=== PATIENT | female | born 2000 | race Asian ===

== ENCOUNTER → 2019-05-29 16:59 | Outpatient (CLI) | payer OTHER, SELFPAY ==
--- NOTE | 2019-05-29 | DI.MRI.S_ITS ---
PROCEDURE: MR BRAIN (PITUITARY) WWO CON INDICATIONS: ELEVATED PROLACTIN TECHNIQUE: Noncontrast sagittal and axial FLAIR, axial gradient echo, axial diffusion and ADC through the brain. Thin-slice sagittal and coronal T1 spin echo, coronal T2 fast spin echo through the pituitary. After the administration contrast, optional dynamic coronal T1 spin echo, thin-slice coronal and sagittal T1 spin echo images through the pituitary fossa; axial T1 spin echo with fat saturation through the brain. COMPARISON: None. FINDINGS: Image quality: Excellent. Pituitary Gland: The pituitary gland is normal size and contour. There is a small, approximately 2 x 3 mm in diameter focus of slightly delayed postcontrast enhancement in the anterior left margin of the pituitary gland suspicious for pituitary microadenoma. Pituitary infundibulum is midline and has normal contours. Pituitary infundibulum enhances normally. The optic chiasm is normal. No suprasellar mass is identified. The cavernous sinus enhances normally. CSF Spaces: Ventricles are normal in size and shape. Basal cisterns are patent. No extra-axial fluid collections. Brain: No intracranial bleeds or mass effects. No abnormal intracranial enhancement. Castillo-white matter interface is intact. Diffusion weighted images demonstrate no acute ischemic insults. Brainstem is normal. Normal intravascular flow voids are present. Skull and face: Calvarial marrow is normal in signal. Orbits appear normal. Sinuses: Sinuses and mastoids are clear. IMPRESSION: Small, approximately 2-3 mm focus of slightly delayed postcontrast enhancement in the anterior left pituitary gland suspicious for pituitary microadenoma. Dictated by: Jelena Loya MD, PhD on 05/30/2019 at 9:59 Approved by: Jelena Loya MD, PhD on 05/30/2019 at 10:11
== END ==
PROVIDERS: Visit Provider Family Medicine
DX: E22.1 Hyperprolactinemia (principal)
CPT/HCPCS: 70553; A9579

== ENCOUNTER 2019-08-13 10:42 | Emergency (ER) | payer OTHER, SELFPAY ==
[2019-08-13 10:58] VITALS: BP 114/74; PULSE 84; RESP 16; TEMP 36.6; O2SAT 98; BMI 17.2
--- NOTE | 2019-08-13 11:06 | DI.RAD.S_ITS ---
PROCEDURE: XR ABDOMEN 1V INDICATIONS: constipation TECHNIQUE: One view of the abdomen acquired. COMPARISON: None. FINDINGS: Surgical changes and devices: None. Bowel: Bowel gas pattern is normal. Moderate stool without obstruction. Soft tissues: No suspicious abdominal calcifications. Visualized solid organ contours appear normal in size. Bones: No suspicious bony lesions. IMPRESSION: Moderate stool without obstruction. Dictated by: Kristie Ricci M.D. on 08/13/2019 at 11:26 Approved by: Kristie Ricci M.D. on 08/13/2019 at 11:28
[2019-08-13 12:10] LABS: RBC Urine 5-10/HPF (0-5/HPF); WBC Urine 10-30/HPF (0-5/HPF)
[2019-08-13 12:11] LABS: Bacteria Urine Many (>30); Culture Indicated Urine Specimen Cultured; Squamous Epithelial Cell Urine 0-1 /HPF (0-5/HPF)
[2019-08-13 13:13] VITALS: BP 116/69; PULSE 89; RESP 16
--- NOTE | 2019-08-13 13:53 | ED_ITS ---
HPI - Abdominal Pain <KOMAL Gray - Last Filed: 08/13/19 14:15> General Chief Complaint: Abdominal Pain Stated Complaint: BACK AND ABD PAIN Time Seen by Provider: 08/13/19 12:49 Source: patient Mode of arrival: Ambulatory Limitations: no limitations History of Present Illness HPI narrative: The patient is a 19-year-old female current smoker presents with a chief complaint of lower back pain and abdominal pain. She states back pain started yesterday. No bowel movements for a few days. Denies any fevers nausea vomiting or diarrhea. She complains of dysuria urgency and frequency. She has a history of urinary tract infections, no recent antibiotics. She states she is eating and drinking well. States that abdominal pain is suprapubic. Related Data Previous Rx's Medication Instructions Recorded sulfamethoxazole-trimethoprim 1 tab PO BID #10 tab 08/13/19 [Bactrim DS] Review of Systems <KOMAL Gray - Last Filed: 08/13/19 14:15> Review of Systems Narrative: GENERAL: Denies chills, fatigue, malaise, fever, sweats. HEENT: Denies sinus pain, ear pain, sore throat, difficulty swallowing, dizziness. RESPIRATORY: Denies dyspnea, cough, wheezing, hemoptysis, sputum. CARDIOVASCULAR: Denies chest pain, palpitations, orthopnea, edema, GASTROINTESTINAL: See HPI : See HPI MUSCULOSKELETAL: denies weakness, joint pain, or bony pain SKIN: Denies rash, skin lesions, or other NEUROLOGIC: Denies weakness, headache, numbness, change in speech, confusion, seizures, incoordination. PSYCHIATRIC: No concerning psychosocial issues. 12 point review of systems is negative except for those stated above Patient History <KOMAL Gray - Last Filed: 08/13/19 14:15> Social History Social History Smoking Status: Current every day smoker tobacco type: cigarettes alcohol intake frequency: 3 or more drinks per day Alcohol type: hard liquor Substance Use Type: does not use Exam <KOMAL Gray - Last Filed: 08/13/19 14:15> Narrative Exam Narrative: GENERAL: This is a well-nourished, well-developed patient, in no acute distress HEAD: Atraumatic. Normocephalic. No temporal or scalp tenderness. EYES: Pupils equal round and reactive. Extraocular motions intact. No scleral icterus. No injection or drainage. ENT: Nose without bleeding, purulent drainage or septal hematoma. Throat without erythema, tonsillar hypertrophy or exudate. Uvula midline. Airway patent. NECK: Trachea midline. No JVD or lymphadenopathy. Supple, nontender, no meningeal signs. CARDIOVASCULAR: Regular rate and rhythm without murmurs, gallops, or rubs. RESPIRATORY: Clear to auscultation. Breath sounds equal bilaterally. No wheezes, rales, or rhonchi. No cough. No increased respiratory effort. No accessory muscle use. GASTROINTESTINAL: Abdomen soft, nondistended. No hepato-splenomegaly, or palpable masses. No guarding. Active bowel sounds all 4 quadrants. Suprapubic tenderness to palpation, no guarding EXTREMITIES: No clubbing, cyanosis, or edema. No joint tenderness, effusion, or edema noted. BACK: Nontender without deformity or crepitance. No flank tenderness. NEURO: AOx3. SKIN: No rash or erythema. Initial Vital Signs Initial Vital Signs: Vital Signs Temperature 97.8 F 08/13/19 10:58 Pulse Rate 84 08/13/19 10:58 Respiratory Rate 16 08/13/19 10:58 Blood Pressure 114/74 08/13/19 10:58 Pulse Oximetry 98 08/13/19 10:58 <Angelito Geiger DO - Last Filed: 08/13/19 14:57> Initial Vital Signs Initial Vital Signs: Vital Signs Temperature 97.8 F 08/13/19 10:58 Pulse Rate 84 08/13/19 10:58 Respiratory Rate 16 08/13/19 10:58 Blood Pressure 114/74 08/13/19 10:58 Pulse Oximetry 98 08/13/19 10:58 Course <KOMAL Gray - Last Filed: 08/13/19 14:15> Orders Ordered: ED Orders 08/13/19 11:05 Urine Culture Stat Urine Microscopic Stat 08/13/19 11:06 XR abdomen 1V Stat Vital Signs Vital signs: Vital Signs - 8 hr 08/13/19 10:58 08/13/19 13:13 Temperature 97.8 F Pulse Rate 84 89 Respiratory Rate 16 16 Blood Pressure 114/74 116/69 Pulse Oximetry 98 <Angelito Geiger DO - Last Filed: 08/13/19 14:57> Orders Ordered: ED Orders 08/13/19 11:05 Urine Culture Stat Urine Microscopic Stat 08/13/19 11:06 XR abdomen 1V Stat Vital Signs Vital signs: Vital Signs - 8 hr 08/13/19 10:58 08/13/19 13:13 Temperature 97.8 F Pulse Rate 84 89 Respiratory Rate 16 16 Blood Pressure 114/74 116/69 Pulse Oximetry 98 MDM - Abdominal Pain <DOYLE Gray-BC - Last Filed: 08/13/19 14:15> Lab Data Labs: Lab Results 08/13/19 Range/Units 11:05 Urine RBC 5-10/hpf H (0-5/HPF) Urine WBC 10-30/hpf H (0-5/HPF) Ur Squamous Epith Cells 0-1 /hpf (0-5/HPF) Urine Bacteria Many (>30) H (None) Ur Culture Indicated? Specimen cultured Point of care testing: Point of Care Testing Test Results Negative Urine Dip Bedside Urine Glucose Negative Bedside Urine Bilirubin - Negative Bedside Urine Ketone - Negative Urine Specific [place] 1.015 Bedside Urine Occult Blood ++ Bedside Urine pH 6.0 Bedside Urine Protein +/- 15 Bedside Urine Urobilinogen - Negative Bedside Urine Nitrite - Negative Bedside Urine Leukocytes ++ 125 Esterase Imaging Data Abdominal x-ray: Radiologist's impression: Chart Viewer Diagnostics DATE TYPE STATUS AUTHOR Hx 08/13/19 11:06 Kristie Ricci 05/29/19 00:00 Jelena Loya Jade N 19, F0 [address] [facility], [facility] ED 160.02cm 43.998kg BMI: 17.2kg/m? Abdominal Pain Search Chart No Data to Display No Data to Display ONSET Today 13:13 Elyssa Martins N 19 F [address] [address] XRay Report Signed Patient: Jose Martinsde [facility]#: [id number] : 2000Acct:[id number] Age/Sex: 19 / FDate of Service: 08/13/19 Loc: ED Accession Number: [id number] Procedure: XR abdomen 1V Ordering Provider: Angelito Geiger D.O. PROCEDURE: XR ABDOMEN 1V INDICATIONS: constipation TECHNIQUE: One view of the abdomen acquired. COMPARISON: None. FINDINGS: Surgical changes and devices: None. Bowel: Bowel gas pattern is normal. Moderate stool without obstruction. Soft tissues: No suspicious abdominal calcifications. Visualized solid organ contours appear normal in size. Bones: No suspicious bony lesions. IMPRESSION: Moderate stool without obstruction. Dictated by: Kristie Ricci M.D. on 08/13/2019 at 11:26 Approved by: Kristie Ricci M.D. on 08/13/2019 at 11:28 [facility] Narrative Medical decision making narrative: The patient is a 19-year-old female who presents with multiple complaints including dysuria, lower back pain constipation. X-ray indicates constipation, but helps rule out obstruction. She does not have an acute abdomen on exam. Her urinalysis is concerning for a UTI, bacterial leukocyte esterase and blood. I placed her on 5 days of Bactrim. Urine cultures pending at this time. I discussed at length hydration, high- fiber diet, suggested Colace MiraLax etc. Discussed at length return precau tions including inability keep down fluids, abdominal with fever etc. Encourage PCP follow-up. Patient has no questions or concerns upon discharge and states understanding of return precautions as well as follow-up care. <Angelito Geiger, - Last Filed: 08/13/19 14:57> Lab Data Labs: Lab Results 08/13/19 Range/Units 11:05 Urine RBC 5-10/hpf H (0-5/HPF) Urine WBC 10-30/hpf H (0-5/HPF) Ur Squamous Epith Cells 0-1 /hpf (0-5/HPF) Urine Bacteria Many (>30) H (None) Ur Culture Indicated? Specimen cultured Point of care testing: Point of Care Testing Test Results Negative Urine Dip Bedside Urine Glucose Negative Bedside Urine Bilirubin - Negative Bedside Urine Ketone - Negative Urine Specific [place] 1.015 Bedside Urine Occult Blood ++ Bedside Urine pH 6.0 Bedside Urine Protein +/- 15 Bedside Urine Urobilinogen - Negative Bedside Urine Nitrite - Negative Bedside Urine Leukocytes ++ 125 Esterase Discharge Plan Departure Patient Disposition: Home Clinical Impression: UTI (urinary tract infection) Qualifiers: Urinary tract infection type: site unspecified Hematuria presence: with hematuria Qualified Code(s): N39.0 - Urinary tract infection, site not specified Constipation Qualifiers: Constipation type: unspecified constipation type Qualified Code(s): K59.00 - Constipation, unspecified Discharge Date/Time: 08/13/19 13:14 Instructions: Constipation (Alternative Therapy), DI for Urinary Tract Infection (UTI), DI for Constipation Activity Restrictions/Additional Instructions: Today we found a urinary tract infection and constipation Be sure to stay hydrated. I suggest high-fiber diet. you can start something such as MiraLax to help prevent constipation. You can always use eovt-stc-kctqoli docusate, which is a stool softener or senna which is a laxative. Monitor for abdominal pain with fever inability keep down fluids or any acute concerns and come back to emergency department for any acute concerns. Please follow up with primary care provider in a few days. Please come back to the emergency department for any acute concerns. Prescriptions: New sulfamethoxazole-trimethoprim [Bactrim DS] 800-160 mg tablet 1 tab PO BID Qty: 10 RF: 0 Referrals: Gloria Santos MD [Primary Care Provider] - Stand Alone Forms: Work Release Note <Angelito Geiger DO - Last Filed: 08/13/19 14:57> Sign Out Provider Sign Out Attestation: I was available for consultation during this patient's emergency department visit. This chart is signed by myself for administrative purposes only. I did not have direct contact with this patient during this visit. They were seen independently by the APC.
== END 2019-08-13 13:14 | disposition home or self-care (01) ==
PROVIDERS: Emergency Provider Nurse Practitioner Family; PCP Family Medicine
DX: N39.0 Urinary tract infection, site not specified (principal); K59.00 Constipation, unspecified
CPT/HCPCS: 74018; 81003; 81015; 81025; 87077; 87086; 87186; 99283; 99284

== ENCOUNTER 2019-08-16 11:21 | Emergency (ER) | payer OTHER, SELFPAY ==
--- NOTE | 2019-08-16 | DI.RAD.S_ITS ---
PROCEDURE: XR CHEST 1V INDICATIONS: VOMITING, DIARRHEA/CONSTIPATION TECHNIQUE: One view of the chest was acquired. COMPARISON: None. FINDINGS: Surgical changes and devices: Metallic foreign bodies project over the bilateral lung bases, most consistent with skin piercings. Lungs and pleura: Lungs are clear. No pleural effusions or pneumothorax. Mediastinum: Mediastinal contours appear normal. Heart size is normal. Bones and chest wall: No suspicious bony lesions. Overlying soft tissues appear unremarkable. IMPRESSION: No radiographic evidence of acute cardiopulmonary disease. Dictated by: Urban Nazario M.D. on 08/16/2019 at 16:20 Approved by: Urban Nazario M.D. on 08/16/2019 at 16:23
[2019-08-16 11:55] VITALS: BP 122/81; PULSE 104; RESP 16; TEMP 37.1; O2SAT 96
--- NOTE | 2019-08-16 12:59 | ED.NAVMDI ---
HPI - Nausea/Vomiting/Diarrhea <Shanda De Souza PA-C - Last Filed: 08/16/19 20:29> General Chief complaint: Nausea/Vomiting/Diarrhea Stated complaint: migraine/bowel pain/diarrhea x3 days Time Seen by Provider: 08/16/19 12:50 Source: patient and family Mode of arrival: Ambulatory Limitations: no limitations History of Present Illness HPI Narrative: This 19-year-old female comes to ED secondary to unrelenting migraine headache that started 2 nights ago. She states that she took her Excedrin, but was not at home and could not take her Maxalt which usually works for her. She states that headache is typically unilateral but this time is all over her head. Other symptoms are typical with light sensitivity and nausea. She states she was vomiting all night last night, some dry heaves today and has not had food or fluids. She did try Zofran and promethazine for nausea that she was given by her PCP but does not think they helped. She states that she also developed diarrhea 2 days ago, cannot say how often but frequent, at least 4 times today, with loose but not bloody or watery stool. She states that she thinks this is due to laxative use because she started using prune juice and laxative to help with some constipation prior. She denies abdominal pain, possibility of or urinary symptoms (she was seen here a few days ago and started on Bactrim for UTI, symptoms have resolved). She denies any fever, upper respiratory symptoms or cough or other new complaints on systems review. Related Data Home Medications Medication Instructions Recorded Confirmed promethazine 25 mg PO PRN PRN 08/16/19 08/16/19 propranolol 10 mg PO QAM 08/16/19 08/16/19 rizatriptan [Maxalt-DATA PROCESSING SPECIALIST] 5 mg PO DIRECTED 08/16/19 08/16/19 Previous Rx's Medication Instructions Recorded sulfamethoxazole-trimethoprim 1 tab PO BID #10 tab 08/13/19 [Bactrim DS] Allergies Allergy/AdvReac Type Severity Reaction Status Date / Time No Known Drug Allergies Allergy Verified 08/16/19 12:01 Review of Systems <Shanda De Souza PA-C - Last Filed: 08/16/19 20:29> Review of Systems ROS Unobtainable: All systems reviewed & are unremarkable except as noted in HPI and below Patient History <Shanda De Souza PA-C - Last Filed: 08/16/19 20:29> Medical History (Updated 08/16/19 @ 16:53 by Shanda De Souza PA-C) Headache, migraine (Acute) Surgical History (Updated 08/16/19 @ 13:28 by Shanda De Souza PA-C) No history of previous surgery (Acute) Social History (Updated 08/16/19 @ 13:29 by Shanda De Souza PA-C) Smoking Status: Current every day smoker Smokeless tobacco user: other Social History (Updated 08/16/19 @ 13:29 by Shanda De Souza PA-C) Smoking Status: Current every day smoker Smokeless tobacco user: other tobacco type: vaping alcohol intake frequency: 3 or more drinks per day Alcohol type: hard liquor Substance Use Type: does not use Exam <Shanda De Souza PA-C - Last Filed: 08/16/19 20:29> Narrative Exam Narrative: GENERAL APPEARANCE: Patient lying in darkened room, in NAD HEENT: PERRL, EOMI, normal oropharynx NECK: Supple LUNGS: Clear to auscultation bilaterally. HEART: Rate and rhythm regular without murmur, normal S1 and S2, no S3 or S4. ABDOMEN: Soft, NT, ND, + BS x 4 quadrants NEUROLOGIC: Alert and oriented, normal speech and coordination. MUSCULOSKELETAL: Full Csp AROM Initial Vital Signs Initial Vital Signs: Vital Signs Temperature 98.8 F 08/16/19 11:55 Pulse Rate 104 H 08/16/19 11:55 Respiratory Rate 16 08/16/19 11:55 Blood Pressure 122/81 08/16/19 11:55 Pulse Oximetry 96 08/16/19 11:55 <Abril Veliz MD - Last Filed: 08/19/19 07:00> Initial Vital Signs Initial Vital Signs: Vital Signs Temperature 98.8 F 08/16/19 11:55 Pulse Rate 104 H 08/16/19 11:55 Respiratory Rate 16 08/16/19 11:55 Blood Pressure 122/81 08/16/19 11:55 Pulse Oximetry 96 08/16/19 11:55 Course <Shanda De Souza PA-C - Last Filed: 08/16/19 20:29> Course Additional Information: Patient initially was feeling better and sleeping after initial medications, then started to have some recurrent vomiting. She reported improvement in her headache, was given Zofran IV and fell back asleep without any recurrent vomiting during her stay. She did not have any episodes of diarrhea while in the department. She was able to tolerate saltines and josee mitch. She reported feeling improved and requesting to go home prior to discharge, states she has suppositories and other medications for nausea at home if needed. I did later review patient's urine culture results which showed E coli resistant to Bactrim. She did report that urinary symptoms had completely resolved. Message left requesting that she call us back so we can ascertain whether a different antibiotic needed. Reviewed plan with nursing to changed to Macrobid if needed. Orders Ordered: Discontinued Medications Diphenhydramine HCl (Benadryl) 25 mg IV NOW ONE Stop: 08/16/19 13:24 Last Admin: 08/16/19 13:57 Dose: 25 mg Documented by: [email or web address] Sodium Chloride (Normal Saline 0.9%) 1,000 mls @ 1,000 mls/hr IV BOLUS ONE Stop: 08/16/19 14:22 Last Infusion: 08/16/19 15:00 Dose: 0 mls/hr Documented by: Admin: 08/16/19 13:52 Dose: 1,000 mls/hr Documented by: [email or web address] Sodium Chloride (Normal Saline 0.9%) 1,000 mls @ 1,000 mls/hr IV BOLUS ONE Stop: 08/16/19 15:55 Last Infusion: 08/16/19 16:30 Dose: 0 mls/hr Documented by: Admin: 08/16/19 15:03 Dose: 1,000 mls/hr Documented by: SUNITHA Ketorolac Tromethamine (Toradol) 30 mg IV NOW ONE Stop: 08/16/19 13:24 Last Admin: 08/16/19 13:55 Dose: 30 mg Documented by: [email or web address] Metoclopramide HCl (Reglan) 10 mg IV NOW ONE Stop: 08/16/19 13:24 Last Admin: 08/16/19 13:52 Dose: 10 mg Documented by: [email or web address] Ondansetron HCl (Zofran) 4 mg IV NOW ONE Stop: 08/16/19 14:57 Last Admin: 08/16/19 15:02 Dose: 4 mg Documented by: SUNITHA Vital Signs Vital signs: Vital Signs - 8 hr 08/16/19 15:41 08/16/19 17:00 Pulse Rate 99 H 84 Respiratory Rate 16 16 Blood Pressure [Right Arm] 113/63 115/73 Pulse Oximetry 98 98 <Abril Veliz MD - Last Filed: 08/19/19 07:00> Orders Ordered: Discontinued Medications Diphenhydramine HCl (Benadryl) 25 mg IV NOW ONE Stop: 08/16/19 13:24 Last Admin: 08/16/19 13:57 Dose: 25 mg Documented by: [email or web address] Sodium Chloride (Normal Saline 0.9%) 1,000 mls @ 1,000 mls/hr IV BOLUS ONE Stop: 08/16/19 14:22 Last Infusion: 08/16/19 15:00 Dose: 0 mls/hr Documented by: Admin: 08/16/19 13:52 Dose: 1,000 mls/hr Documented by: [email or web address] Sodium Chloride (Normal Saline 0.9%) 1,000 mls @ 1,000 mls/hr IV BOLUS ONE Stop: 08/16/19 15:55 Last Infusion: 08/16/19 16:30 Dose: 0 mls/hr Documented by: Admin: 08/16/19 15:03 Dose: 1,000 mls/hr Documented by: SUNITHA Ketorolac Tromethamine (Toradol) 30 mg IV NOW ONE Stop: 08/16/19 13:24 Last Admin: 08/16/19 13:55 Dose: 30 mg Documented by: [email or web address] Metoclopramide HCl (Reglan) 10 mg IV NOW ONE Stop: 08/16/19 13:24 Last Admin: 08/16/19 13:52 Dose: 10 mg Documented by: [email or web address] Ondansetron HCl (Zofran) 4 mg IV NOW ONE Stop: 08/16/19 14:57 Last Admin: 08/16/19 15:02 Dose: 4 mg Documented by: SUNITHA Vital Signs Vital signs: Vital Signs - 8 hr 08/16/19 15:41 08/16/19 17:00 Pulse Rate 99 H 84 Respiratory Rate 16 16 Blood Pressure [Right Arm] 113/63 115/73 Pulse Oximetry 98 98 Discharge Plan Departure Patient Disposition: Home Clinical Impression: Vomiting and diarrhea, Acute dehydration Headache, migraine Qualifiers: Migraine type: unspecified Status migrainosus presence: without status migrainosus Intractability: not intractable Qualified Code(s): G43.909 - Migraine, unspecified, not intractable, without status migrainosus Discharge Date/Time: 08/16/19 17:17 Instructions: DI for Migraine, DI for Dehydration -- Adult, DI for Vomiting -- Adult Activity Restrictions/Additional Instructions: Since you are feeling better, you can rest at home tonight in a dark quiet room, avoid any screen time. Drink plenty of clear fluids, and you can eat small amounts of bland food every couple of hours, try white bread or toast, white rice, bananas, applesauce 1st, and you can slowly advance her diet as you are feeling better. You can take your antinausea medicine as needed. As we talked about, you should return if you have any acutely worsening symptoms, unable to keep down fluids again, etc or new symptoms such as fever. Otherwise, please see your PCP if you are feeling back to normal in the next few days Prescriptions: No Action propranolol 10 mg tablet 10 mg PO QAM RF: 0 rizatriptan [Maxalt-DATA PROCESSING SPECIALIST] 5 mg tablet,disintegrating 5 mg PO DIRECTED RF: 0 promethazine 25 mg tablet 25 mg PO PRN PRN (Reason: Nausea) RF: 0 sulfamethoxazole-trimethoprim [Bactrim DS] 800-160 mg tablet 1 tab PO BID Qty: 10 RF: 0 Referrals: Gloria Santos MD [Primary Care Provider] - Stand Alone Forms: Work Release Note
[2019-08-16] MEDS: SODIUM CHLORIDE 0.9% 1,000 ML 1000 ML IV ×2 (13:52→15:03)
[2019-08-16] MEDS: METOCLOPRAMIDE 10 MG/2 ML INJ IV (13:52)
[2019-08-16] MEDS: KETOROLAC 60 MG/2 ML VIAL 30 MG IV (13:55)
[2019-08-16] MEDS: diphenhydrAMINE 50 MG/ML VIAL 25 MG IV (13:57)
--- NOTE | 2019-08-16 14:56 | DI.RAD.S_ITS ---
PROCEDURE: XR ABDOMEN 1V INDICATIONS: vomiting, diarrhea/constipation TECHNIQUE: One view of the abdomen acquired. COMPARISON: [facility], CR, XR ABDOMEN 1V, 08/13/2019, 11:08. FINDINGS: Surgical changes and devices: Metallic foreign bodies project over the bilateral lung bases, most consistent with skin piercings. Bowel: Bowel gas pattern is nonobstructive, with no air-fluid levels identified and no dilated loops of bowel seen. Soft tissues: No suspicious abdominal calcifications. Visualized solid organ contours appear normal in size. Bones: No suspicious bony lesions. IMPRESSION: Nonobstructive bowel gas pattern. Consider CT for further evaluation if there is continued clinical concern. Dictated by: Urban Nazario M.D. on 08/16/2019 at 16:23 Approved by: Urban Nazario M.D. on 08/16/2019 at 16:27
[2019-08-16] MEDS: ONDANSETRON 4 MG/2 ML INJ IV (15:02)
[2019-08-16 15:41] VITALS: BP 113/63; PULSE 99; RESP 16; O2SAT 98
[2019-08-16 17:00] VITALS: BP 115/73; PULSE 84; RESP 16; O2SAT 98
== END 2019-08-16 17:17 | disposition home or self-care (01) ==
PROVIDERS: Emergency Provider Internal Medicine; PCP Family Medicine
DX: G43.909 Migraine, unspecified, not intractable, without status migrainosus (principal); E86.0 Dehydration; R11.10 Vomiting, unspecified; R19.7 Diarrhea, unspecified
CPT/HCPCS: 36415; 71045; 74018; 96361; 96374; 96375; 99283; 99284; J1200; J1885; J2405; J2765

== ENCOUNTER 2020-01-04 19:35 | Emergency (ER) | payer OTHER, SELFPAY ==
[2020-01-04 19:56] VITALS: BP 132/68; PULSE 115; RESP 24; TEMP 36.9; O2SAT 98
[2020-01-04] MEDS: ONDANSETRON 4 MG/2 ML INJ IV (20:46)
[2020-01-04] MEDS: SODIUM CHLORIDE 0.9% 1,000 ML 1000 ML IV (20:54)
[2020-01-04 21:00] LABS: Add Manual Diff / Slide Review NO; Basophils Absolute Auto 0 /uL (0-100); Basophils Percent Auto 0.3 % (0-2); Eosinophils Absolute Auto 0 /uL (0-450); Hematocrit 42.9 % (36-46); Lymphocytes Absolute Auto 900 /uL (1100-4500); Lymphocytes Percent Auto 10.5 % (25-40); Mean Corpuscular HGB Conc 34.9 % (30-36); Mean Corpuscular Hemoglobin 30.8 PG (26-34); Mean Corpuscular Volume 88.2 fL (80-100); Monocytes Absolute Auto 300 /uL (0-900); Monocytes Percent Auto 3.8 % (3-14); Neutrophils Absolute Auto 7600 /uL (1500-7000); Neutrophils Percent Auto 85.4 % (50-75); Platelet Count 439 X10^3/uL (150-400); Red Blood Cell Count 4.86 X10^6/uL (4.0-5.2); Red Cell Distribution Width 13.5 % (11.6-14.8); White Blood Cell Count 8.9 X10^3/uL (4.5-11.0)
--- NOTE | 2020-01-04 21:10 | ED.NAVMDI ---
HPI - Nausea/Vomiting/Diarrhea General Chief complaint: Nausea/Vomiting/Diarrhea Stated complaint: THROWING UP Time Seen by Provider: 01/04/20 20:00 Source: patient and family Mode of arrival: Ambulatory Limitations: no limitations History of Present Illness HPI Narrative: 19-year-old female smoker presents with her father in the chief complaint of significant nausea, vomiting and diarrhea over the past few days. She has become dizzy and lightheaded. She admits to some vague abdominal cramping but no significant pain. She denies any exposure to bad food, recent antibiotics or travel. She denies any blood in her stool or vomit. She takes no blood thinners. She recently received a positive PPD and was therefore started on a regimen of TB medications. Her symptoms started very soon thereafter. She did have bit of a runny nose, sneezing and coughing and was taking [id number] cough and cold medicine which was noted to be 10% alcohol. She did drink a bit of alcohol on Tuesday night, it is unclear if she consumed any alcoholic beverages while on this regimen of medications. She has had no fever or chills MD complaint: nausea, vomiting, diarrhea and abdominal pain Onset (ago): day(s) Description of Vomiting: food contents Description of Diarrhea: watery Associated Abdominal Pain: Yes Location of pain: diffuse Severity: mild Quality: cramping Pain Consistency: intermittent Relieving factors: bowel movement Context: other Associated symptoms: loss of appetite Related Data Home Medications Medication Instructions Recorded Confirmed promethazine 25 mg PO PRN PRN 08/16/19 08/16/19 propranolol 10 mg PO QAM 08/16/19 08/16/19 rizatriptan [Maxalt-[employer] REPRESENTATIVE] 5 mg PO DIRECTED 08/16/19 08/16/19 Previous Rx's Medication Instructions Recorded sulfamethoxazole-trimethoprim 1 tab PO BID #10 tab 08/13/19 [Bactrim DS] ondansetron 4 mg PO TID-QID PRN #10 tab 01/05/20 Allergies Allergy/AdvReac Type Severity Reaction Status Date / Time No Known Drug Allergies Allergy Verified 08/16/19 12:01 Review of Systems Constitutional Constitutional: Denies chills, Denies fatigue, Denies fever(s), Denies frequent falls, Denies lethargy and Reports weakness Eyes Eyes: Denies change in vision, Denies eye discharge, Denies irritation and Denies loss of vision ENT Ears, Nose, Mouth, and Throat: Denies change in voice, Denies dizziness, Denies neck pain, Denies sore throat and Denies throat swelling Cardiovascular Cardiovascular: Denies chest pain, Denies irregular heart rhythm, Denies lightheadedness, Denies palpitations, Denies dyspnea, Denies dyspnea on exertion and Denies orthopnea Respiratory Respiratory: Denies cough, Denies dyspnea, Denies dyspnea on exertion and Denies wheezing Gastrointestinal Gastrointestinal: Reports abdominal pain, Denies change in bowel habits, Reports diarrhea, Reports nausea and Reports vomiting Genitourinary Genitourinary: Denies hematuria, Denies flank pain, Denies urinary incontinence and Denies urinary urgency Musculoskeletal Musculoskeletal: Denies back pain, Denies muscle weakness, Denies neck pain, Denies numbness and Denies tingling Integumentary/Breasts Skin/Breast: Denies pruritus, Denies erythema, Denies rash and Denies wounds Neurologic Neurologic: Denies behavioral changes, Denies confusion, Denies dizziness, Denies frequent falls, Denies loss of vision, Denies numbness, Denies tingling and Reports weakness Psychiatric Psychiatric: Denies anxiety, Denies behavioral changes, Denies confusion, Denies depression, Denies homicidal ideation and Denies suicidal ideation Endocrine Endocrine: Denies fatigue, Denies flushing and Denies palpitations Hematologic/Lymphatic Hematologic/Lymphatic: Denies easy bruising Allergic/Immunologic Allergic/Immunologic: Denies urticaria, Denies throat swelling and Denies wheezing Patient History Medical History Headache, migraine (Acute) Surgical History No history of previous surgery (Acute) Social History Smoking Status: Current every day smoker Smokeless tobacco user: other Smoking Status: Current every day smoker tobacco type: vaping alcohol intake frequency: 3 or more drinks per day Alcohol type: hard liquor Substance Use Type: does not use Exam Narrative Exam Narrative: GENERAL: [] 19 year old patient appears stated age. Well-nourished, well-developed patient, in moderate distress. Clearly feeling unwell, curled up in a ball on the cart HEAD: Atraumatic. Normocephalic. EYES: Pupils equal round and reactive. Extraocular motions intact. No scleral icterus. No injection or drainage. ENT: Dry mucous membranes. Nose without bleeding, purulent drainage. Throat without erythema, tonsillar hypertrophy or exudate. Airway patent. NECK: Trachea midline. Non tender CARDIOVASCULAR: Regular rate and rhythm without murmurs, gallops, or rubs. RESPIRATORY: Clear to auscultation. Breath sounds equal bilaterally. No wheezes, rales, or rhonchi. GASTROINTESTINAL: Abdomen soft, non-tender, nondistended. EXTREMITIES: No edema or joint tenderness. BACK: Nontender without deformity or crepitance. No flank tenderness. NEURO: AOx3. SKIN: No rash or erythema of visible areas Initial Vital Signs Initial Vital Signs: Vital Signs Temperature 98.5 F 01/04/20 19:56 Pulse Rate 115 H 01/04/20 19:56 Respiratory Rate 24 01/04/20 19:56 Blood Pressure 132/68 01/04/20 19:56 Pulse Oximetry 98 01/04/20 19:56 Course Course Course Narrative: Patient feels tremendous relief after above-stated therapies. Initial labs showed an anion gap acidosis, perhaps due to isoniazid versus other. Repeat labs had normalized, vital signs unremarkable. Discussion with patient and father regarding close follow-up with her PCP to discuss medication regimen. Avoidance of alcohol. Clear liquid diet. Return precautions given and questions answered to their apparent satisfaction Orders Ordered: Discontinued Medications Sodium Chloride (Normal Saline 0.9%) 1,000 mls @ 1,000 mls/hr IV BOLUS ONE Stop: 01/04/20 21:50 Last Infusion: 01/04/20 22:44 Dose: 0 mls/hr Documented by: Admin: 01/04/20 20:54 Dose: 1,000 mls/hr Documented by: FLORI Lactated Ringer's (Lactated Ringers) 1,000 mls @ 1,000 mls/hr IV BOLUS ONE Stop: 01/04/20 23:45 Last Infusion: 01/05/20 00:00 Dose: 0 mls/hr Documented by: Admin: 01/04/20 22:48 Dose: 1,000 mls/hr Documented by: FLORI Ondansetron HCl (Zofran) 4 mg IV NOW ONE Stop: 01/04/20 20:36 Last Admin: 01/04/20 20:46 Dose: 4 mg Documented by: FLORI Ondansetron HCl (Zofran Odt Prepack) 1 bottle MISC SEEINSTR ONE Stop: 01/05/20 00:50 Last Admin: 01/05/20 01:07 Dose: 1 bottle Documented by: SUNITHA Pantoprazole Sodium (Protonix) 40 mg IV NOW ONE Stop: 01/04/20 22:04 Last Admin: 01/04/20 22:47 Dose: 40 mg Documented by: FLORI Vital Signs Vital signs: Vital Signs - 8 hr 01/04/20 19:56 Temperature 98.5 F Pulse Rate 115 H Respiratory Rate 24 Blood Pressure 132/68 Pulse Oximetry 98 MDM - Nausea/Vomiting/Diarrhea Lab Data Result diagrams: 01/04/20 20:45 01/04/20 23:54 Labs: Lab Results 01/04/20 01/04/20 01/04/20 Range/Units 20:45 20:45 20:45 WBC 8.9 (4.5-11.0) X10^3/uL RBC 4.86 (4.0-5.2) X10^6/uL Hgb 15.0 (12.0-16.0) g/dL Hct 42.9 (36-46) % MCV 88.2 (80-100) fL MCH 30.8 (26-34) PG MCHC 34.9 (30-36) % RDW 13.5 (11.6-14.8) % Plt Count 439 H (150-400) X10^3/uL Neut % (Auto) 85.4 H (50-75) % Lymph % (Auto) 10.5 L (25-40) % Ross % (Auto) 3.8 (3-14) % Eos % (Auto) 0.0 L (2-4) % Baso % (Auto) 0.3 (0-2) % Neut # (Auto) 7600 H (5330-8877) /uL Lymph # (Auto) 900 L (9923-4096) /uL Ross # (Auto) 300 (0-900) /uL Eos # (Auto) 0 (0-450) /uL Baso # (Auto) 0 (0-100) /uL PT 12.8 H (10.1-12.7) SECONDS INR 1.1 (0.9-1.3) APTT 29 (26.4-36.2) SECONDS Sodium 142 (137-145) mmol/L Potassium 3.5 (3.4-5.1) mmol/L Chloride 105 (98-107) mmol/L Carbon Dioxide 16 L (22-32) mmol/L BUN 15 (7-17) mg/dL Creatinine 0.60 (0.52-1.04) mg/dL Estimated GFR > 60.0 (>60) mL/min BUN/Creatinine Ratio 25.0 H (6-22) Glucose 116 H (70-100) mg/dL Lactate (0.7-2.1) mmol/L Calcium 10.9 H (8.4-10.2) mg/dL Total Bilirubin 1.3 (0.2-1.3) mg/dL AST 35 (14-36) IU/L ALT 32 (<35) IU/L Alkaline Phosphatase 103 (38-126) U/L Total Protein 9.7 H* (6.3-8.2) g/dL Albumin 5.7 H (3.5-5.0) g/dL Globulin 4.0 (1.7-4.1) g/dL Albumin/Globulin Ratio 1.4 (1.0-2.8) Lipase 118 (23-300) U/L 01/04/20 01/04/20 Range/Units 22:18 23:54 WBC (4.5-11.0) X10^3/uL RBC (4.0-5.2) X10^6/uL Hgb (12.0-16.0) g/dL Hct (36-46) % MCV (80-100) fL MCH (26-34) PG MCHC (30-36) % RDW (11.6-14.8) % Plt Count (150-400) X10^3/uL Neut % (Auto) (50-75) % Lymph % (Auto) (25-40) % Ross % (Auto) (3-14) % Eos % (Auto) (2-4) % Baso % (Auto) (0-2) % Neut # (Auto) (1235-4172) /uL Lymph # (Auto) (8676-1562) /uL Ross # (Auto) (0-900) /uL Eos # (Auto) (0-450) /uL Baso # (Auto) (0-100) /uL PT (10.1-12.7) SECONDS INR (0.9-1.3) APTT (26.4-36.2) SECONDS Sodium 141 (137-145) mmol/L Potassium 3.4 (3.4-5.1) mmol/L Chloride 109 H (98-107) mmol/L Carbon Dioxide 21 L (22-32) mmol/L BUN 14 (7-17) mg/dL Creatinine 0.50 L (0.52-1.04) mg/dL Estimated GFR > 60.0 (>60) mL/min BUN/Creatinine Ratio 28.0 H (6-22) Glucose 112 H (70-100) mg/dL Lactate 1.4 (0.7-2.1) mmol/L Calcium 9.3 (8.4-10.2) mg/dL Total Bilirubin (0.2-1.3) mg/dL AST (14-36) IU/L ALT (<35) IU/L Alkaline Phosphatase (38-126) U/L Total Protein (6.3-8.2) g/dL Albumin (3.5-5.0) g/dL Globulin (1.7-4.1) g/dL Albumin/Globulin Ratio (1.0-2.8) Lipase (23-300) U/L Discharge Plan Departure Patient Disposition: Home Clinical Impression: Dehydration, Vomiting and diarrhea Discharge Date/Time: 01/05/20 01:10 Instructions: DI for Dehydration -- Adult, DI for Nausea -- Adult, DI for Vomiting -- Adult Activity Restrictions/Additional Instructions: 1. Drink plenty of fluids with frequent small sips. 2. For the next 24 hours a clear liquid diet is advised. After that please employ a brat diet which would include bananas, rice, apples, toast. 3. Please take medications as directed. 4. Please follow-up with your doctor in the next 1-2 days. Call the office for an appointment. 5. Please return to the emergency Department for any worsening or persistent symptoms, such as increasing pain or fever. Prescriptions: New ondansetron 4 mg tablet,disintegrating 4 mg PO TID-QID PRN (Reason: nausea and vomiting) Qty: 10 RF: 0 No Action propranolol 10 mg tablet 10 mg PO QAM RF: 0 rizatriptan [Maxalt-[employer] SAL[employer] REPRESENTATIVE] 5 mg tablet,disintegrating 5 mg PO DIRECTED RF: 0 promethazine 25 mg tablet 25 mg PO PRN PRN (Reason: Nausea) RF: 0 sulfamethoxazole-trimethoprim [Bactrim DS] 800-160 mg tablet 1 tab PO BID Qty: 10 RF: 0 Referrals: Gloria Santos MD [Primary Care Provider] -
[2020-01-04 21:16] LABS: INR 1.1 (0.9-1.3); Prothrombin Time 12.8 SECONDS (10.1-12.7)
[2020-01-04 21:19] LABS: PTT Partial Thromboplastin Tim 29 SECONDS (26.4-36.2)
[2020-01-04 21:20] LABS: Alanine Aminotransferase 32 IU/L (<35); Albumin 5.7 g/dL (3.5-5.0); Albumin Globulin Ratio 1.4 (1.0-2.8); Alkaline Phosphatase 103 U/L (38-126); Aspartate Aminotransferase 35 IU/L (14-36); Bilirubin Total 1.3 mg/dL (0.2-1.3); Blood Urea Nitrogen 15 mg/dL (7-17); Calcium 10.9 mg/dL (8.4-10.2); Carbon Dioxide 16 mmol/L (22-32); Chloride 105 mmol/L (98-107); Estimated Glomerular Filt Rate > 60.0 mL/min (>60); Glucose 116 mg/dL (70-100); HEMOLYSIS < 15 (0-50); Lipase 118 U/L (23-300); Potassium 3.5 mmol/L (3.4-5.1); Sodium 142 mmol/L (137-145)
[2020-01-04 21:22] LABS: Total Protein 9.7 g/dL (6.3-8.2)
[2020-01-04 22:36] LABS: Lactate (Lactic Acid) 1.4 mmol/L (0.7-2.1)
[2020-01-04] MEDS: PANTOPRAZOLE 40 MG VIAL IV (22:47)
[2020-01-04] MEDS: LACTATED RINGERS 1,000 ML 1000 ML IV (22:48)
[2020-01-05 00:14] LABS: Blood Urea Nitrogen 14 mg/dL (7-17); Calcium 9.3 mg/dL (8.4-10.2); Carbon Dioxide 21 mmol/L (22-32); Chloride 109 mmol/L (98-107); Estimated Glomerular Filt Rate > 60.0 mL/min (>60); Glucose 112 mg/dL (70-100); HEMOLYSIS < 15 (0-50); Potassium 3.4 mmol/L (3.4-5.1); Sodium 141 mmol/L (137-145)
[2020-01-05] MEDS: ONDANSETRON 4 MG ODT PREPACK 1 BOTTLE MISC (01:07)
[2020-01-05 01:08] VITALS: BP 137/72; PULSE 98; RESP 20; O2SAT 99
== END 2020-01-05 01:10 | disposition home or self-care (01) ==
PROVIDERS: Emergency Provider Emergency Medicine; PCP Family Medicine
DX: E86.0 Dehydration (principal); R11.2 Nausea with vomiting, unspecified; R19.7 Diarrhea, unspecified; R10.9 Unspecified abdominal pain
CPT/HCPCS: 36415; 80048; 80053; 83605; 83690; 85025; 85610; 85730; 96361; 96374; 96375; 99284; C9113; J2405

== ENCOUNTER 2024-01-03 18:12 | Emergency (ER) | payer OTHER, SELFPAY ==
[2024-01-03] VITALS (8 sets, daily range): BP systolic 118–137; BP diastolic 77–99; PULSE 77–91; RESP 18; TEMP 36.9; O2SAT 93–99; BMI 17.5
[2024-01-03 19:21] LABS: Add Manual Diff / Slide Review NO; Basophils Absolute Auto 100 /uL (0-100); Eosinophils Absolute Auto 200 /uL (0-450); Eosinophils Percent Auto 2.2 % (2-4); Hematocrit 36.6 % (36-46); Hemoglobin 12.7 g/dL (12.0-16.0); Lymphocytes Absolute Auto 2800 /uL (1100-4500); Lymphocytes Percent Auto 41.9 % (25-40); Mean Corpuscular HGB Conc 34.7 % (30-36); Mean Corpuscular Hemoglobin 31.1 PG (26-34); Mean Corpuscular Volume 89.6 fL (80-100); Monocytes Absolute Auto 400 /uL (0-900); Monocytes Percent Auto 6.6 % (3-14); Neutrophils Absolute Auto 3300 /uL (1500-7000); Neutrophils Percent Auto 48.3 % (50-75); Platelet Count 352 X10^3/uL (150-400); Red Blood Cell Count 4.09 X10^6/uL (4.0-5.2); Red Cell Distribution Width 13.1 % (11.6-14.8); White Blood Cell Count 6.8 X10^3/uL (4.5-11.0)
[2024-01-03 19:40] LABS: Blood Urea Nitrogen 11 mg/dL (7-17); Calcium 9.1 mg/dL (8.4-10.2); Carbon Dioxide 22 mmol/L (22-32); Chloride 106 mmol/L (98-107); Estimated Glomerular Filt Rate > 60 mL/min (>60); Glucose 96 mg/dL (70-100); HEMOLYSIS < 15 (0-50); Sodium 137 mmol/L (137-145)
--- NOTE | 2024-01-03 20:56 | PC.NURSE ---
Pt states that she was seen in a clinic today and provider told her to come to ed for US, the out pt US appt would take 2-3 day wait and the provider did not want her to wait that long. Seen at [facility].
--- NOTE | 2024-01-03 21:07 | DI.US.S_ITS ---
PROCEDURE: US PELVIC LIMITED INDICATIONS: vaginal bleeding TECHNIQUE: Real-time transabdominal scanning was performed of the pelvic organs, with image documentation. COMPARISON: None. FINDINGS: Uterus: Uterus is anteverted and normal in size at 7.4 x 3.4 x 4.4 cm. The myometrium is homogeneous. The endometrium measures 3.4 mm combined thickness. No endometrial mass or fluid is seen. Ovaries: The right ovary measures 2.7 x 3.3 x 2.8 cm, with a calculated ovarian volume of 12.7 cc. The left ovary measures 1.7 x 1.8 x 1.2 cm, with a calculated ovarian volume of 2.0 cc. The 2.9 x 2.1 x 2.5 cm cyst is noted in right ovary containing internal thin septation. Less than 12 follicles can be seen in each ovary. No adnexal masses are seen. Other: No pathologic free abdominal or pelvic fluid. IMPRESSION: 1. Normal appearing uterus and endometrium. 2. Normal appearing left ovary. 2.9 cm septated cyst is seen in right ovary suggest ultrasound follow-up in 4-6 weeks. No evidence of ovarian torsion. We strive to produce accurate, complete, and clear reports of imaging services. To assist us in improving patient care, this report was composed using standard report templates and voice recognition software. Therefore, it may contain abnormal punctuation, insertions and/or omissions. Occasional wrong-word or sound-alike substitutions may occur. Though we review the report and make efforts to correct it, we do recommend that the report be read carefully in proper context to recognize any text inaccuracies. Dictated by: Galindo Lora M.D. on 01/03/2024 at 22:50 Approved by: Galindo Lora M.D. on 01/03/2024 at 22:52
--- NOTE | 2024-01-03 23:01 | ED_ITS ---
HPI - General Adult General Chief complaint: Vaginal Bleeding Stated complaint: pelvic pain, abnormal bleeding Time Seen by Provider: 01/03/24 19:11 Source: patient Mode of arrival: Ambulatory History of Present Illness HPI narrative: 23-year-old delivery was in January of 2023 1st menstrual cycle was in October. She began having some vaginal bleeding yesterday and today is noticing increasing cramping particularly along her C- section scar, radiating into her back into her upper thighs. Is concerned about the volume of bleeding. She talked to her OB provider who recommended coming to the emergency department and suggested an ultrasound would be helpful. She describes no fevers, cough, chills. She has not currently Related Data Home Medications Medication Instructions Recorded Confirmed promethazine 25 mg tablet 25 mg PO PRN PRN Nausea 08/16/19 08/16/19 propranolol 10 mg tablet 10 mg PO QAM 08/16/19 08/16/19 rizatriptan 5 mg disintegrating 5 mg PO DIRECTED 08/16/19 08/16/19 tablet (Maxalt-HAND STONER) Previous Rx's Medication Instructions Recorded sulfamethoxazole 800 1 tab PO BID #10 tabs 08/13/19 mg-trimethoprim 160 mg tablet (Bactrim DS) ondansetron 4 mg disintegrating 4 mg PO TID-QID PRN nausea and 01/05/20 tablet vomiting #10 tabs Allergies Allergy/AdvReac Type Severity Reaction Status Date / Time No Known Drug Allergies Allergy Verified 08/16/19 12:01 Review of Systems Review of Systems Narrative: Pertinent positive and negative findings as per HPI Patient History Medical History (Updated 01/03/24 @ 23:21 by Nitza Fiore MD) Headache, migraine Surgical History No history of previous surgery Social History Smoking Status: Current every day smoker Smokeless tobacco user: other Smoking Status: Current every day smoker tobacco type: vaping alcohol intake frequency: a few times a month Alcohol type: hard liquor Substance Use Type: does not use Exam Initial Vital Signs Initial Vital Signs: Vital Signs Temperature 98.5 F 01/03/24 18:30 Pulse Rate 87 01/03/24 18:30 Respiratory Rate 18 03/05/24 18:30 Blood Pressure 137/98 H 01/03/24 18:30 Pulse Oximetry 98 01/03/24 18:30 Oxygen Delivery Method Room Air 01/03/24 18:30 General: Alert appropriate in no acute distress Respiratory: Able to speak in full sentences, no obvious respiratory distress Skin: No obvious rashes, warm and dry Neurologic: Grossly intact no obvious asymmetries or abnormalities Psych: appropriate insight and affect, cooperative Course Orders Ordered: ED Orders 01/03/24 19:14 Basic Metabolic Panel Stat Complete Blood Count AUTO DIFF Stat Type and Screen Stat 01/03/24 21:07 US pelvic complete Stat Vital Signs Vital signs: Vital Signs - 8 hr 01/03/24 18:30 Temperature 98.5 F Pulse Rate 87 Respiratory Rate 18 Blood Pressure 137/98 H Pulse Oximetry 98 Oxygen Delivery Method Room Air Medical Decision Making Lab Data 01/03/24 19:14 01/03/24 19:14 Labs: Lab Results 01/03/24 Range/Units 19:14 WBC 6.8 (4.5-11.0) X10^3/uL RBC 4.09 (4.0-5.2) X10^6/uL Hgb 12.7 (12.0-16.0) g/dL Hct 36.6 (36-46) % MCV 89.6 (80-100) fL MCH 31.1 (26-34) PG MCHC 34.7 (30-36) % RDW 13.1 (11.6-14.8) % Plt Count 352 (150-400) X10^3/uL Neut % (Auto) 48.3 L (50-75) % Lymph % (Auto) 41.9 H (25-40) % Bowie % (Auto) 6.6 (3-14) % Eos % (Auto) 2.2 (2-4) % Baso % (Auto) 1.0 (0-2) % Neut # (Auto) 3300 (1337-5933) /uL Lymph # (Auto) 2800 (8530-9088) /uL Bowie # (Auto) 400 (0-900) /uL Eos # (Auto) 200 (0-450) /uL Baso # (Auto) 100 (0-100) /uL Sodium 137 (137-145) mmol/L Potassium 4.0 (3.4-5.1) mmol/L Chloride 106 (98-107) mmol/L Carbon Dioxide 22 (22-32) mmol/L BUN 11 (7-17) mg/dL Creatinine 0.58 (0.52-1.04) mg/dL Estimated GFR > 60 (>60) mL/min BUN/Creatinine Ratio 19.0 (6-22) Glucose 96 (70-100) mg/dL Calcium 9.1 (8.4-10.2) mg/dL Blood Type B Positive Antibody Screen Negative Point of Care Testing Test Results Negative Urine Dip Bedside Urine Glucose Negative Bedside Urine Bilirubin - Negative Bedside Urine Ketone - Negative Urine Specific [place] 1.020 Bedside Urine Occult Blood +++ Bedside Urine pH 6.5 Bedside Urine Protein - Negative Bedside Urine Urobilinogen - Negative Bedside Urine Nitrite - Negative Bedside Urine Leukocytes - Negative Esterase Point of care testing: Point of Care Testing Test Results Negative Urine Dip Bedside Urine Glucose Negative Bedside Urine Bilirubin - Negative Bedside Urine Ketone - Negative Urine Specific [place] 1.020 Bedside Urine Occult Blood +++ Bedside Urine pH 6.5 Bedside Urine Protein - Negative Bedside Urine Urobilinogen - Negative Bedside Urine Nitrite - Negative Bedside Urine Leukocytes - Negative Esterase Imaging Data Pelvic ultrasound: Radiologist's Impression: PROCEDURE: US PELVIC LIMITED INDICATIONS: vaginal bleeding TECHNIQUE: Real-time transabdominal scanning was performed of the pelvic organs, with image documentation. COMPARISON: None. FINDINGS: Uterus: Uterus is anteverted and normal in size at 7.4 x 3.4 x 4.4 cm. The myometrium is homogeneous. The endometrium measures 3.4 mm combined thickness. No endometrial mass or fluid is seen. Ovaries: The right ovary measures 2.7 x 3.3 x 2.8 cm, with a calculated ovarian volume of 12.7 cc. The left ovary measures 1.7 x 1.8 x 1.2 cm, with a calculated ovarian volume of 2.0 cc. The 2.9 x 2.1 x 2.5 cm cyst is noted in right ovary containing internal thin septation. Less than 12 follicles can be seen in each ovary. No adnexal masses are seen. Other: No pathologic free abdominal or pelvic fluid. IMPRESSION: 1. Normal appearing uterus and endometrium. 2. Normal appearing left ovary. 2.9 cm septated cyst is seen in right ovary suggest ultrasound follow-up in 4-6 weeks. No evidence of ovarian torsion. MDM Narrative Medical decision making narrative: CC: Heavy vaginal bleeding with cramping Complicating co-morbidities: Delivery 11 months ago Data collected from: patient Differential considered: Menstrual cramping, endometriosis scar, ectopic Exam documented above, pertinent findings include: Exam is relatively benign. Lab Test results independently reviewed as above. Pertinent findings: CBC has normal white blood cell count. H and H is 12.7 and 36.6 Chemistries are unremarkable with normal renal function Urinalysis today has blood but no evidence of urinary tract infection. Urine test is negative Imaging studies independently reviewed: Pelvic ultrasound shows a normal- appearing uterus. Endometrium is 3.4 mm no endometrial masses appreciated. Left ovary is unremarkable. Is a 2.9 cm septated cyst in the right ovary with follow up recommended in 4-6 weeks. No evidence of ovarian torsion Discussion: Menometrorrhagia without evidence of ovarian torsion, retained uterine mass, ectopic . Ibuprofen and Tylenol given. Reviewed findings of lab work and ultrasound. No suggestion of acute surgical abdomen or other infectious etiology. Patient is given copies of the ultrasound results as well as lab work to share with her providers [place]. At this point questions have been answered and she is safe for discharge Discharge Plan Departure Patient Disposition: Home Clinical Impression: Dysfunctional uterine bleeding Ovarian cyst Qualifiers: Laterality: right Qualified Code(s): N83.201 - Unspecified ovarian cyst, right side Instructions: DI for Ovarian Cyst, DI for Dysmenorrhea Activity Restrictions/Additional Instructions: Thank you for coming in today I did not find any life-threatening abnormalities, reasons for hospitalization or additional imaging. I am seeing no signs of infection either within your uterus, kidneys, bladder or in your abdomen. There was no sign of ovarian torsion. Your ultrasound does show that you have a 3 cm cyst on the right ovary and the radiologist has recommended ultrasound follow up in 4-6 weeks. I would recommend that you schedule an appointment with your OB provider in about 4 weeks. I have given you copies of the ultrasound report and labs to share with your provider when you do follow up. Using 400 mg of ibuprofen (2 [id number] pills) and 1 Tylenol every 6 hours can be very helpful in controlling pain. If you find that you are getting worse or develop any new symptoms, please feel free to return to the emergency department for further evaluation. Prescriptions: No Action propranolol 10 mg tablet 10 mg PO QAM Patient Comments: patient states stopped taking 08/16/19 Rx Instructions: TK 1 T PO QAM rizatriptan [Maxalt-HAND STONER] 5 mg tablet,disintegrating 5 mg PO DIRECTED promethazine 25 mg tablet 25 mg PO PRN PRN (Reason: Nausea) sulfamethoxazole-trimethoprim [Bactrim DS] 800-160 mg tablet 1 tab PO BID Qty: 10 0RF ondansetron 4 mg tablet,disintegrating 4 mg PO TID-QID PRN (Reason: nausea and vomiting) Qty: 10 0RF Referrals: Gloria Santos MD [Primary Care Provider] - Stand Alone Forms: Patient Portal/API
[2024-01-03] MEDS: IBUPROFEN 400 MG TABLET PO (23:21)
[2024-01-03] MEDS: ACETAMINOPHEN 325 MG TABLET PO (23:21)
== END 2024-01-03 23:27 | disposition home or self-care (01) ==
PROVIDERS: Emergency Provider Emergency Medicine; PCP Family Medicine
DX: N83.201 Unspecified ovarian cyst, right side (principal); N93.9 Abnormal uterine and vaginal bleeding, unspecified; R10.2 Pelvic and perineal pain
CPT/HCPCS: 36415; 76830; 76856; 80048; 81003; 81025; 85025; 86850; 86900; 86901; 99283; 99284